=== PATIENT | female | born 1945 | race Caucasian/White ===

== ENCOUNTER → 2018-06-10 | Outpatient (REF) | payer BC ==
[2018-06-10 17:37] LABS: BACTERIA, URINE AUTO 1+ (NEGATIVE); CALCIUM OXALATE CRYSTALS SMALL; MUCUS, URINE SMALL (NEGATIVE); RBC, URINE AUTO 2 /HPF (0-3); SQUAMOUS EPITHELIAL CELL UR AU 2 /HPF (0-6); WBC, URINE AUTO 6 /HPF (0-3)
== END ==
LOC: M LAB REF 09:42
DX: N76.0 Acute vaginitis (principal)
CPT/HCPCS: 81015

== ENCOUNTER 2022-10-05 16:28 | Emergency (ER) | payer BC, OTHER ==
[~2022-10-05] VITALS: Ht 154.9 cm; Wt 67.3 kg
[2022-10-05] MEDS ORDERED: LEVO112T2 (16:37)
[2022-10-05] MEDS ORDERED: ROSU10TA6 (16:37)
[2022-10-05] MEDS ORDERED: METO1TAB7 (16:37)
[2022-10-05] MEDS ORDERED: RAMI1CAP22 (16:37)
[2022-10-05 18:50] LABS: BASO # 0.1 10^3/uL (0.0-0.2); BASO % 0.7 % (0.0-1.0); EOS # 0.1 10^3/uL (0.0-0.5); EOS % 0.8 % (0.0-3.0); HEMATOCRIT 40.4 % (36.0-47.0); HEMOGLOBIN 13.6 g/dl (12.0-15.5); LYMPH # 2.7 10^3/uL (1.5-5.0); LYMPH % 25.7 % (24.0-44.0); MEAN CORPUSCULAR HEMOGLOBIN 32.9 pg (27.0-33.0); MEAN CORPUSCULAR HGB CONC 33.7 g/dl (32.0-36.5); MEAN CORPUSCULAR VOLUME 97.8 fl (80.0-96.0); MONO # 0.6 10^3/uL (0.0-0.8); MONO % 5.9 % (2.0-8.0); NEUTROPHILS # 6.9 10^3/uL (1.5-8.5); NEUTROPHILS % 65.4 % (36.0-66.0); PLATELET COUNT, AUTOMATED 255 10^3/uL (150-450); RED BLOOD COUNT 4.13 10^6/uL (4.00-5.40); WHITE BLOOD COUNT 10.5 10^3/uL (4.0-10.0)
[2022-10-05 19:37] LABS: ALBUMIN 3.7 GM/DL (3.2-5.2); ALT/SGPT 45 U/L (12-78); BILIRUBIN,DIRECT 0.2 MG/DL (0.0-0.2); BILIRUBIN,TOTAL 0.4 MG/DL (0.2-1.0); BLOOD UREA NITROGEN 14 MG/DL (7-18); CALCIUM LEVEL 9.8 MG/DL (8.8-10.2); CARBON DIOXIDE LEVEL 26 MEQ/L (21-32); CHLORIDE LEVEL 104 MEQ/L (98-107); CREATININE FOR GFR 0.77 MG/DL (0.55-1.30); GLOMERULAR FILTRATION RATE > 60.0 (>39); GLUCOSE, FASTING 99 MG/DL (70-100); LIPASE 378 U/L (73-393); POTASSIUM SERUM 4.4 MEQ/L (3.5-5.1); SODIUM LEVEL 137 MEQ/L (136-145); TOTAL PROTEIN 7.2 GM/DL (6.4-8.2)
[2022-10-05 20:07] VITALS: BP 141/60
== END 2022-10-05 20:51 | disposition home or self-care (01) ==
LOC: M ED 16:28
DX: R19.7 Diarrhea, unspecified (principal); I10 Essential (primary) hypertension; E78.5 Hyperlipidemia, unspecified; K21.9 Gastro-esophageal reflux disease without esophagitis; Z87.891 Personal history of nicotine dependence; Z87.42 Personal history of other diseases of the female genital tract; Z79.811 Long term (current) use of aromatase inhibitors; Z79.899 Other long term (current) drug therapy

== ENCOUNTER → 2022-10-06 | Outpatient (REF) | payer BC ==
[~2022-10-06] MED LIST: LEVO112T2; METO1TAB7; RAMI1CAP22; ROSU10TA6
== END ==
LOC: M LAB REF 15:07
PROVIDERS: ATTEND Internal Medicine
DX: R19.7 Diarrhea, unspecified (principal)

== ENCOUNTER → 2023-01-13 | Outpatient (CLI) | payer BC | LOC: M WHC 13:22 | PROVIDERS: ATTEND Internal Medicine | DX: Z12.31 Encounter for screening mammogram for malignant neoplasm of breast (principal); M85.89 Other specified disorders of bone density and structure, multiple sites ==

== ENCOUNTER → 2023-04-07 | Outpatient (REF) | payer BC ==
[2023-04-07 18:23] LABS: IRON (FE) 51 UG/DL (50-170); PERCENT SATURATION 17.8 % (13.2-45.0); TOTAL IRON BINDING CAPACITY 286 UG/DL (250-425)
[2023-04-07 18:26] LABS: FERRITIN 210.3 NG/ML (7.3-270.7)
[2023-04-07 18:48] LABS: INR 0.93; PROTHROMBIN TIME 12.7 SECONDS (12.5-14.5)
[2023-04-08 00:13] LABS: HEPATITIS B SURFACE ANTIBODY NEGATIVE (POSITIVE)
== END ==
LOC: M LAB REF 16:36
PROVIDERS: ATTEND Internal Medicine
DX: K76.0 Fatty (change of) liver, not elsewhere classified (principal)

== ENCOUNTER → 2023-04-11 | Outpatient (REF) | payer BC | LOC: M LAB REF 14:29 | PROVIDERS: ATTEND Internal Medicine | DX: R19.7 Diarrhea, unspecified (principal) ==

== ENCOUNTER → 2024-02-07 | Outpatient (CLI) | payer BC | LOC: M RAD 09:34 | PROVIDERS: ATTEND Internal Medicine | DX: K76.0 Fatty (change of) liver, not elsewhere classified (principal) ==

== ENCOUNTER → 2024-04-30 | Outpatient (CLI) | payer BC ==
[~2024-04-30] MED LIST changes: +ISOVUE-370 76% 100ML VIAL As Ordered ONE; -RAMI1CAP22; +RAMI2.5C42; -ROSU10TA6; +ROSU10TA61
== END ==
LOC: M RAD 11:05
PROVIDERS: ATTEND Internal Medicine
DX: D37.6 Neoplasm of uncertain behavior of liver, gallbladder and bile ducts (principal); K76.0 Fatty (change of) liver, not elsewhere classified
CPT/HCPCS: 74170; Q9967

== ENCOUNTER → 2024-08-05 | Outpatient (CLI) | payer BC ==
[~2024-08-05] MED LIST changes: -ISOVUE-370 76% 100ML VIAL As Ordered ONE
== END ==
LOC: M RAD 07:02
PROVIDERS: ATTEND Internal Medicine
DX: K76.9 Liver disease, unspecified (principal)

== ENCOUNTER → 2024-08-16 | Outpatient (CLI) | payer BC ==
[~2024-08-16] MED LIST changes: +GASTROGRAFIN SOLUTION 30ML As Ordered ONE; +ISOVUE-370 76% 100ML VIAL As Ordered ONE
== END ==
LOC: M RAD 07:06
PROVIDERS: ATTEND Internal Medicine
DX: K63.89 Other specified diseases of intestine (principal); K57.30 Diverticulosis of large intestine without perforation or abscess without bleeding; R93.89 Abnormal findings on diagnostic imaging of other specified body structures
CPT/HCPCS: 72193; Q9963; Q9967

== ENCOUNTER → 2024-08-21 | Outpatient (REF) | payer BC ==
[~2024-08-21] MED LIST changes: -GASTROGRAFIN SOLUTION 30ML As Ordered ONE; -ISOVUE-370 76% 100ML VIAL As Ordered ONE
[2024-08-21 18:13] LABS: PERCENT SATURATION 7.7 % (13.2-45.0)
[2024-08-21 18:16] LABS: FERRITIN 28.7 NG/ML (7.3-270.7)
== END ==
LOC: M LAB REF 16:25
PROVIDERS: ATTEND Internal Medicine
DX: D64.9 Anemia, unspecified (principal)

== ENCOUNTER → 2024-08-26 | Outpatient (CLI) | payer BC ==
[2024-08-26 13:53] LABS: INR 1.05; PARTIAL THROMBOPLASTIN TIME 26.8 SECONDS (24.8-34.2); PROTHROMBIN TIME 13.4 SECONDS (12.5-14.5)
[2024-08-26 14:15] LABS: ALKALINE PHOSPHATASE 105 U/L (46-116); ALT/SGPT 15 U/L (7.0-40); AST/SGOT 33 U/L (<34); BILIRUBIN,DIRECT < 0.1 MG/DL (<0.4); BILIRUBIN,TOTAL 0.2 MG/DL (0.3-1.2); HEPATITIS B SURFACE ANTIBODY NEGATIVE (POSITIVE); IRON (FE) 24 UG/DL (50-170); PERCENT SATURATION 8.6 % (13.2-45.0); TOTAL IRON BINDING CAPACITY 279 UG/DL (250-425); TOTAL PROTEIN 6.9 G/DL (5.7-8.2)
[2024-08-26 14:16] LABS: THYROID STIMULATING HORMONE 6.029 uIU/ML (0.55-4.78)
[2024-08-26 14:17] LABS: FERRITIN 28.3 NG/ML (7.3-270.7)
[2024-08-26 14:28] LABS: HEPATITIS B SURFACE ANTIGEN NEGATIVE (NEGATIVE)
[2024-08-26 14:49] LABS: HEPATITIS C VIRUS ABY INDEX 0.08 INDEX (<0.8)
[2024-08-27 10:18] LABS: ALPHA 1 ANTITRYPSIN 263 mg/dL (83-199)
[2024-08-27 12:41] LABS: HEPATITIS A IgG TOTAL REACTIVE (NON-REACTIVE)
[2024-08-27 12:53] LABS: TISSUE TRANSGLUTAMINASE IgA < 1.0 U/mL (<15.0); TISSUE TRANSGLUTAMINASE IgG < 1.0 U/mL (<15.0)
[2024-08-27 15:22] LABS: ANTI-MITOCHONDRIAL ANTIBODY NEGATIVE (NEGATIVE)
[2024-08-27 15:35] LABS: ANA SCREEN, IFA NEGATIVE (NEGATIVE)
[2024-08-28 08:13] LABS: ALBUMIN SPEP 3.4 g/dL (3.8-4.8); ALPHA-1-GLOBULINS SO 0.5 g/dL (0.2-0.3); ALPHA-2-GLOBULINS SO 1.3 g/dL (0.5-0.9); BETA 2 GLOBULIN 0.5 g/dL (0.2-0.5); BETA-GLOBULIN SO 0.4 g/dL (0.4-0.6); GAMMA GLOBULINS SO 0.9 g/dL (0.8-1.7)
[2024-08-30 00:27] LABS: LIVER-KIDNEY MICROSOMAL ABY <= 20.0 U (<=20.0)
== END ==
LOC: M LAB 11:58
DX: R93.3 Abnormal findings on diagnostic imaging of other parts of digestive tract (principal)

== ENCOUNTER → 2024-09-03 | Outpatient (REF) | payer BC | LOC: M LAB REF 16:39 | PROVIDERS: ATTEND Internal Medicine | DX: D47.2 Monoclonal gammopathy (principal) ==

== ENCOUNTER → 2024-09-18 | Outpatient (CLI) | payer BC ==
[~2024-09-18] MED LIST changes: +GASTROGRAFIN SOLUTION 30ML As Ordered ONE; +ISOVUE-370 76% 100ML VIAL As Ordered ONE
== END ==
LOC: M RAD 14:21
PROVIDERS: ATTEND Internal Medicine Gastroenterology
DX: R13.10 Dysphagia, unspecified (principal); D50.9 Iron deficiency anemia, unspecified; K22.89 Other specified disease of esophagus; K63.5 Polyp of colon; Z86.0109 Personal history of other colon polyps
CPT/HCPCS: 71260; 74177; Q9963; Q9967

== ENCOUNTER 2024-10-07 07:30 | Inpatient (IN) | payer BC ==
[~2024-10-07] VITALS: Ht 154.9 cm; Wt 64.7 kg
[~2024-10-07 07:30] MED LIST changes: +CENTCHW3 PO; +CO Q1CAP2 PO; +GALZ50CA PO; -GASTROGRAFIN SOLUTION 30ML As Ordered ONE; -ISOVUE-370 76% 100ML VIAL As Ordered ONE; +LEVO112T2 PO; +LEVO125T4 PO; -METO1TAB7; +METO1TAB7 PO; +OMEP40CA4 PO; +PEPC40TA12 PO; +ROSU10TA61 PO; +VITA100093 PO
[2024-10-09] VITALS (7 sets, daily range): BP systolic 113–134; BP diastolic 59–64; TEMP 97.1–98.5; O2SAT 94–97
[2024-10-09] MEDS ORDERED: propofoL 200 MG/20 ML VIAL As Ordered ONE (10:49)
[2024-10-09] MEDS ORDERED: KETAMINE HCL 200MG/20ML VIAL As Ordered ONE (10:49)
[2024-10-09] MEDS ORDERED: MIDAZOLAM INJ 2MG/2ML VIAL As Ordered ONE (10:49)
[2024-10-09] MEDS ORDERED: fentaNYL 100 MCG/2 ML INJECTION As Ordered ONE (10:49)
[2024-10-09] MEDS ORDERED: ROCURONIUM BROMIDE 50MG/5ML VIAL As Ordered ONE (10:49)
[2024-10-09] MEDS ORDERED: SUGAMMADEX SODIUM 500 MG/5 ML VIAL (BRIDION) As Ordered ONE (10:50)
[2024-10-09] MEDS ORDERED: LIDOCAINE 2% 100MG/5ML SDV (FOR ANES.) As Ordered ONE (10:50)
[2024-10-09] MEDS ORDERED: KETOROLAC 60MG 2ML VIAL As Ordered ONE (10:50)
[2024-10-09] MEDS ORDERED: ONDANSETRON 4MG 2ML VIAL As Ordered ONE (10:50)
[2024-10-09] MEDS ORDERED: ACETAMINOPHEN 1000MG/100ML IV BAG As Ordered ONE (10:50)
[2024-10-09] MEDS: ceFAZolin SOD 2 GM in IV 1 EA IV ONE (11:40)
[2024-10-09] MEDS ORDERED: LACRILUBE (AKWA TEARS) OPHTH OINT 3.5GM As Ordered ONE (11:51)
[2024-10-09] MEDS: metroNIDAZOLE 500 MG in IV 1 EA IV ONE (12:00)
[2024-10-09] MEDS ORDERED: HOME MED LIST COMPLETE! XX SCH (12:50)
[2024-10-09] MEDS ORDERED: fentaNYL 100 MCG/2 ML INJECTION IV PRN (14:00)
[2024-10-09] MEDS ORDERED: ONDANSETRON 4MG 2ML VIAL IV PRN (14:00)
[2024-10-09] MEDS ORDERED: oxyCODONE 5MG TAB PO PRN (14:00)
[2024-10-09] MEDS: NS 250 ML IV SCH (14:00)
[2024-10-09] MEDS ORDERED: HYDROMORPHONE HCL 0.5 MG/ 0.5 ML SYRINGE IV PRN (14:00)
[2024-10-09] MEDS: GLUCAGON INJ 1MG VIAL As Ordered ONE (14:23)
[2024-10-09] MEDS: PANTOPRAZOLE 40MG VIAL IV SCH (15:42)
[2024-10-09] MEDS: traMADol 50 MG TAB PO PRN ×2 (15:44→23:21)
[2024-10-09] MEDS: NS 1,000 ML IV SCH (17:15)
[2024-10-09] MEDS: KETOROLAC 30 MG/ML 1ML VIAL IV SCH (19:56)
[2024-10-10 03:02] VITALS: BP 117/57; TEMP 97; O2SAT 93
[2024-10-10 06:54] VITALS: BP 111/52; TEMP 96.4; O2SAT 93
[2024-10-10 07:04] LABS: HEMATOCRIT 28.7 % (36.0-47.0); HEMOGLOBIN 8.2 g/dl (12.0-15.5); MEAN CORPUSCULAR HGB CONC 28.6 g/dl (32.0-36.5); MEAN CORPUSCULAR VOLUME 80.4 fl (80.0-96.0); PLATELET COUNT, AUTOMATED 325 10^3/uL (150-450); RED BLOOD COUNT 3.57 10^6/uL (4.00-5.40); WHITE BLOOD COUNT 9.3 10^3/uL (4.0-10.0)
[2024-10-10 07:36] LABS: BLOOD UREA NITROGEN 12 MG/DL (9-23); CALCIUM LEVEL 8.9 MG/DL (8.3-10.6); CARBON DIOXIDE LEVEL 25 MMOL/L (20-31); CHLORIDE LEVEL 111 MMOL/L (98-107); CREATININE FOR GFR 0.61 MG/DL (0.55-1.30); GLOMERULAR FILTRATION RATE > 60.0 (>39); GLUCOSE, FASTING 101 MG/DL (74-106); POTASSIUM SERUM 3.8 MMOL/L (3.5-5.1); SODIUM LEVEL 143 MMOL/L (136-145)
[2024-10-10 12:22] VITALS: BP 127/54; TEMP 97.5; O2SAT 94
[2024-10-10] MEDS: ONDANSETRON 4MG 2ML VIAL IV PRN (13:43)
[2024-10-10] MEDS: FAMOTIDINE 20 MG TAB PO SCH (15:37)
[2024-10-10] MEDS: PROMETHAZINE 25 MG TAB PO ONE (17:53)
[2024-10-10 19:16] VITALS: BP 160/71; TEMP 97.5; O2SAT 94
[2024-10-11] MEDS: FAMOTIDINE 20MG/2ML VIAL IVP SCH (00:25)
[2024-10-11 03:45] VITALS: BP 165/79; TEMP 97.9; O2SAT 94
[2024-10-11 05:54] LABS: HEMATOCRIT 32.2 % (36.0-47.0); HEMOGLOBIN 9.3 g/dl (12.0-15.5); MEAN CORPUSCULAR HEMOGLOBIN 23.1 pg (27.0-33.0); MEAN CORPUSCULAR HGB CONC 28.9 g/dl (32.0-36.5); MEAN CORPUSCULAR VOLUME 80.1 fl (80.0-96.0); PLATELET COUNT, AUTOMATED 407 10^3/uL (150-450); RED BLOOD COUNT 4.02 10^6/uL (4.00-5.40); WHITE BLOOD COUNT 11.2 10^3/uL (4.0-10.0)
[2024-10-11 06:24] LABS: BLOOD UREA NITROGEN 9 MG/DL (9-23); CALCIUM LEVEL 8.4 MG/DL (8.3-10.6); CARBON DIOXIDE LEVEL 22 MMOL/L (20-31); CHLORIDE LEVEL 112 MMOL/L (98-107); CREATININE FOR GFR 0.46 MG/DL (0.55-1.30); GLOMERULAR FILTRATION RATE > 60.0 (>39); GLUCOSE, FASTING 114 MG/DL (74-106); POTASSIUM SERUM 3.5 MMOL/L (3.5-5.1); SODIUM LEVEL 143 MMOL/L (136-145)
[2024-10-11 08:00] VITALS: BP 162/78; TEMP 97.7; O2SAT 95
[2024-10-11] MEDS ORDERED: PILL CUTTER 1 EACH XX PRN (08:30)
[2024-10-11] MEDS: METOPROLOL SUCC (TopROL XL) 50MG **XL** TAB PO SCH (10:08)
[2024-10-11] MEDS: ROSUVASTATIN 10 MG TAB (CRESTOR) PO SCH (10:08)
[2024-10-11] MEDS: SIMETHICONE 80MG CHEW TAB PO SCH (11:52)
[2024-10-11 12:00] VITALS: BP 130/64; TEMP 97.7; O2SAT 94
[2024-10-11 19:47] VITALS: BP 160/76; TEMP 97.7; O2SAT 90
[2024-10-12 04:00] VITALS: BP 165/78; TEMP 98.1; O2SAT 95
[2024-10-12 06:36] LABS: HEMATOCRIT 32.4 % (36.0-47.0); HEMOGLOBIN 9.6 g/dl (12.0-15.5); MEAN CORPUSCULAR HEMOGLOBIN 23.7 pg (27.0-33.0); MEAN CORPUSCULAR HGB CONC 29.6 g/dl (32.0-36.5); PLATELET COUNT, AUTOMATED 412 10^3/uL (150-450); RED BLOOD COUNT 4.05 10^6/uL (4.00-5.40); WHITE BLOOD COUNT 13.6 10^3/uL (4.0-10.0)
[2024-10-12 07:07] LABS: BLOOD UREA NITROGEN < 5 MG/DL (9-23); CALCIUM LEVEL 8.5 MG/DL (8.3-10.6); CARBON DIOXIDE LEVEL 23 MMOL/L (20-31); CHLORIDE LEVEL 106 MMOL/L (98-107); CREATININE FOR GFR 0.42 MG/DL (0.55-1.30); GLOMERULAR FILTRATION RATE > 60.0 (>39); GLUCOSE, FASTING 133 MG/DL (74-106); POTASSIUM SERUM 3.3 MMOL/L (3.5-5.1); SODIUM LEVEL 140 MMOL/L (136-145)
[2024-10-12 08:10] VITALS: BP 162/80
[2024-10-12] MEDS: cefTRIAXone SOD 2 GM in DEXTROSE 5% (D5W) ADV/MINI-BAG 50 ML IV SCH (10:11)
[2024-10-12] MEDS: KCL 40MEQ in NS 1000ML 1,000 ML IV SCH (11:19)
[2024-10-12 12:00] VITALS: BP 158/78; TEMP 97.5; O2SAT 95
[2024-10-12] MEDS ORDERED: BOUDREAUX'S BUTT PASTE TOP PRN (17:30)
[2024-10-12] MEDS ORDERED: PREPARATION H OINTMENT (HEMORRHOID) PR PRN (17:30)
[2024-10-12 20:00] VITALS: BP 161/80; TEMP 98.1; O2SAT 95
[2024-10-13 04:00] VITALS: BP 139/74; TEMP 97.3; O2SAT 96
[2024-10-13 06:51] LABS: HEMATOCRIT 29.3 % (36.0-47.0); HEMOGLOBIN 8.5 g/dl (12.0-15.5); MEAN CORPUSCULAR HEMOGLOBIN 23.3 pg (27.0-33.0); MEAN CORPUSCULAR VOLUME 80.3 fl (80.0-96.0); PLATELET COUNT, AUTOMATED 326 10^3/uL (150-450); RED BLOOD COUNT 3.65 10^6/uL (4.00-5.40); WHITE BLOOD COUNT 8.5 10^3/uL (4.0-10.0)
[2024-10-13 07:25] LABS: BLOOD UREA NITROGEN < 5 MG/DL (9-23); CALCIUM LEVEL 8.3 MG/DL (8.3-10.6); CARBON DIOXIDE LEVEL 17 MMOL/L (20-31); CHLORIDE LEVEL 111 MMOL/L (98-107); CREATININE FOR GFR 0.38 MG/DL (0.55-1.30); GLOMERULAR FILTRATION RATE > 60.0 (>39); GLUCOSE, FASTING 98 MG/DL (74-106); SODIUM LEVEL 142 MMOL/L (136-145)
[2024-10-13 07:51] VITALS: BP 140/69
[2024-10-13] MEDS: ACETAMINOPHEN 325 MG TAB PO PRN (11:16)
[2024-10-13 12:00] VITALS: BP 140/67; TEMP 97.5; O2SAT 97
[2024-10-13 20:00] VITALS: BP 143/69; TEMP 97.7; O2SAT 97
[2024-10-14 03:30] VITALS: BP 144/69; TEMP 97.5; O2SAT 97
[2024-10-14 07:30] VITALS: BP 136/70; TEMP 97.7; O2SAT 98
[2024-10-14 07:32] LABS: HEMOGLOBIN 8.3 g/dl (12.0-15.5); MEAN CORPUSCULAR HEMOGLOBIN 23.5 pg (27.0-33.0); MEAN CORPUSCULAR HGB CONC 29.6 g/dl (32.0-36.5); MEAN CORPUSCULAR VOLUME 79.3 fl (80.0-96.0); PLATELET COUNT, AUTOMATED 304 10^3/uL (150-450); RED BLOOD COUNT 3.53 10^6/uL (4.00-5.40); WHITE BLOOD COUNT 8.3 10^3/uL (4.0-10.0)
[2024-10-14 08:14] LABS: BLOOD UREA NITROGEN < 5 MG/DL (9-23); CALCIUM LEVEL 8.3 MG/DL (8.3-10.6); CARBON DIOXIDE LEVEL 18 MMOL/L (20-31); CHLORIDE LEVEL 109 MMOL/L (98-107); CREATININE FOR GFR 0.42 MG/DL (0.55-1.30); GLOMERULAR FILTRATION RATE > 60.0 (>39); GLUCOSE, FASTING 83 MG/DL (74-106); POTASSIUM SERUM 3.6 MMOL/L (3.5-5.1); SODIUM LEVEL 142 MMOL/L (136-145)
[2024-10-14] MEDS: [UNRECOGNIZED DRUG - REMARK] XX SCH (09:00)
[2024-10-14 12:00] VITALS: BP 141/69; TEMP 97.3; O2SAT 97
[2024-10-14 12:39] VITALS: BP 128/55; TEMP 97.3; O2SAT 97
[2024-10-14 20:48] VITALS: BP 149/81; TEMP 97.9; O2SAT 97
[2024-10-15 04:46] VITALS: BP 149/78; TEMP 97.9; O2SAT 96
[2024-10-15 06:53] LABS: HEMATOCRIT 29.1 % (36.0-47.0); HEMOGLOBIN 8.9 g/dl (12.0-15.5); MEAN CORPUSCULAR HEMOGLOBIN 23.9 pg (27.0-33.0); MEAN CORPUSCULAR HGB CONC 30.6 g/dl (32.0-36.5); PLATELET COUNT, AUTOMATED 335 10^3/uL (150-450); RED BLOOD COUNT 3.73 10^6/uL (4.00-5.40); WHITE BLOOD COUNT 8.8 10^3/uL (4.0-10.0)
[2024-10-15 07:12] LABS: BLOOD UREA NITROGEN < 5 MG/DL (9-23); CALCIUM LEVEL 8.3 MG/DL (8.3-10.6); CARBON DIOXIDE LEVEL 19 MMOL/L (20-31); CHLORIDE LEVEL 106 MMOL/L (98-107); CREATININE FOR GFR 0.41 MG/DL (0.55-1.30); GLOMERULAR FILTRATION RATE > 60.0 (>39); GLUCOSE, FASTING 101 MG/DL (74-106); POTASSIUM SERUM 3.2 MMOL/L (3.5-5.1); SODIUM LEVEL 138 MMOL/L (136-145)
[2024-10-15 12:00] VITALS: BP 137/56; TEMP 97.5; O2SAT 97
[2024-10-15 19:54] VITALS: BP 123/62; TEMP 97.7; O2SAT 97
[2024-10-15] MEDS: NYSTATIN 500,000U/5ML SUSP UDC SS SCH (20:34)
[2024-10-15] MEDS ORDERED: NYSTATIN 500,000U/5ML SUSP UDC SS SCH (21:00)
[2024-10-16 04:31] VITALS: BP 132/63; TEMP 97.3; O2SAT 96
[2024-10-16 06:44] LABS: HEMATOCRIT 29.5 % (36.0-47.0); HEMOGLOBIN 9.1 g/dl (12.0-15.5); MEAN CORPUSCULAR HEMOGLOBIN 23.5 pg (27.0-33.0); MEAN CORPUSCULAR HGB CONC 30.8 g/dl (32.0-36.5); MEAN CORPUSCULAR VOLUME 76.2 fl (80.0-96.0); PLATELET COUNT, AUTOMATED 344 10^3/uL (150-450); RED BLOOD COUNT 3.87 10^6/uL (4.00-5.40); WHITE BLOOD COUNT 8.4 10^3/uL (4.0-10.0)
[2024-10-16 07:27] LABS: BLOOD UREA NITROGEN < 5 MG/DL (9-23); CALCIUM LEVEL 8.7 MG/DL (8.3-10.6); CARBON DIOXIDE LEVEL 20 MMOL/L (20-31); CHLORIDE LEVEL 101 MMOL/L (98-107); CREATININE FOR GFR 0.45 MG/DL (0.55-1.30); GLOMERULAR FILTRATION RATE > 60.0 (>39); GLUCOSE, FASTING 99 MG/DL (74-106); SODIUM LEVEL 137 MMOL/L (136-145)
[2024-10-16 08:29] VITALS: BP 141/69
[2024-10-16] MEDS: POTASSIUM CHLORIDE 10MEQ SR TABLET PO ONE (10:57)
[2024-10-16] MEDS: FLUCONAZOLE 100 MG TAB PO ONE (10:57)
== END 2024-10-16 11:35 | disposition home or self-care (01) | DRG 221 ==
LOC: M OR 10-09 10:23 → M MS5PR 10-09 15:15
PROVIDERS: ADMIT Surgery; ATTEND Surgery
PROC: 0DTK4ZZ Resection of Ascending Colon, Percutaneous Endoscopic Approach (ICD-10-PCS; principal; 2024-10-10)
DX: C18.2 Malignant neoplasm of ascending colon (principal); B37.0 Candidal stomatitis; K56.7 Ileus, unspecified; E87.6 Hypokalemia; I10 Essential (primary) hypertension; I25.10 Atherosclerotic heart disease of native coronary artery without angina pectoris; Z88.5 Allergy status to narcotic agent; Z79.899 Other long term (current) drug therapy; Z98.41 Cataract extraction status, right eye; Z98.42 Cataract extraction status, left eye; Z87.891 Personal history of nicotine dependence; K91.89 Other postprocedural complications and disorders of digestive system

== ENCOUNTER → 2024-11-18 | Outpatient (CLI) | payer BC ==
[~2024-11-18] MED LIST changes: +B-122500 PO; +FERR325T3 PO; +PRES10CA2 PO
== END ==
LOC: M PLARAD 13:18
PROVIDERS: ATTEND Internal Medicine Medical Oncology
DX: C18.9 Malignant neoplasm of colon, unspecified (principal)
CPT/HCPCS: 78815; A9552

== ENCOUNTER → 2025-02-21 | Outpatient (CLI) | payer BC | LOC: M WHC 13:59 | PROVIDERS: ATTEND Internal Medicine | DX: M81.0 Age-related osteoporosis without current pathological fracture (principal); M85.88 Other specified disorders of bone density and structure, other site ==

== ENCOUNTER → 2025-08-14 | Outpatient (CLI) | payer BC ==
[~2025-08-14] MED LIST changes: -GALZ50CA PO; +ZINC50CA4 PO
== END ==
LOC: M RAD 08:46
PROVIDERS: ATTEND Internal Medicine
DX: K74.60 Unspecified cirrhosis of liver (principal)

== ENCOUNTER → 2025-11-04 | Outpatient (REF) | payer BC ==
[~2025-11-04] MED LIST changes: -ROSU10TA61; -ROSU10TA61 PO; +ROSU10TA90; +ROSU10TA90 PO
[2025-11-04 18:07] LABS: INR 1.08
== END ==
LOC: M LAB REF 17:03
PROVIDERS: ATTEND Internal Medicine
DX: K70.0 Alcoholic fatty liver (principal); K75.81 Nonalcoholic steatohepatitis (NASH)